=== PATIENT | female | born 1960 | race Caucasian/White ===

== ENCOUNTER → 2023-06-26 06:13 | Day surgery (SDC) | payer BC, SELFPAY ==
[2023-06-11 14:10] VITALS: BMI 21.8
[2023-06-26] VITALS (10 sets, daily range): BP systolic 95–115; BP diastolic 60–72; BMI 21.8; BMI 21.1
[2023-06-26] MEDS: VANCOCIN 200 IV (06:47)
[2023-06-26] MEDS: NORMOSOL-R 1000 IV (06:48)
[2023-06-26] MEDS: TYLENOL 1000 MG PO (06:50)
--- NOTE | 2023-06-26 06:57 | HP.FOC2 ---
Focused History & Physical
Chief Complaint
HPI:
Chief Complaint: right inguinal hernia
HPI / Indication for Planned Procedure: Patient is a 62-year-old female presenting for scheduled operative correction symptomatic right inguinal hernia. She was recently seen in outpatient surgical evaluation for history of discomfort and visible
swelling in the right inguinal region. CT abdomen/pelvis showing suspected right indirect hernia which was subsequently confirmed on examination with visible swelling and a reducible protrusion.
Relevant Past Medical History: Other (History of alcohol induced seizures, GERD, hypertension, depression, hyperlipidemia, panic attacks, osteoarthritis, urinary incontinence)
Relevant Social History: ETOH (h/o, quit 2021)
Relevant Family History: Negative
Relevant Past Surgical History: Positive for (Right rotator cuff, breast implants, cardiac catheterization)
Review of Systems
Review of Pertinent Systems: All Systems Negative
Medication
See Medication form for detailed medications: Yes
Medication List (including Herbals & OTC):
rosuvastatin 20 mg tablet 20 mg PO DAILY 07/15/18
hydrochlorothiazide 12.5 mg capsule 12.5 mg PO HS 08/26/21
hydrochlorothiazide 25 mg tablet 25 mg PO DAILY 08/26/21
ondansetron 4 mg disintegrating tablet 4 mg PO TIDPRN PRN nausea/vomiting #10 tabs 08/31/21
Linzess 145 mcg PO DAILY 06/23/23
Vitamin C 1 tab PO DAILY 06/23/23
calcium 1 gum PO DAILY 06/23/23
cholecalciferol (vitamin D3) 125 mcg (5,000 unit) tablet (Vitamin D3) 125 mcg PO DAILY 06/23/23
magnesium 1 tab PO DAILY 06/23/23
metoprolol succinate 25 mg tablet,extended release 24 hr 25 mg PO DAILY 06/23/23
multivitamin 1 tab PO DAILY 06/23/23
vitamin B complex 1 tab PO DAILY 06/23/23
Pepcid 1 tab PO DAILY PRN indegestion 06/26/23
trazodone 50 mg tablet 50 mg PO HS PRN sleep 06/26/23
Medications Reviewed: Yes
Allergies and Reactions
Patient has Allergies: Yes
Noted Allergies and Reactions:
Allergy/AdvReac Type Severity Reaction Status Date / Time
Penicillins Allergy Mild Rash Verified 06/26/23 06:20
amoxicillin Allergy Rash Verified 06/26/23 06:20
cephalexin Allergy Rash Verified 06/26/23 06:20
Sulfa (Sulfonamide Allergy Rash Verified 06/26/23 06:20
Antibiotics)
trimethoprim Allergy Rash Verified 06/26/23 06:20
steroids Allergy 'it makes Uncoded 06/26/23 06:20
me really
really
crazy'
Pertinent Physical Exam
All Other Systems: Negative
Head/Neck: Normal
Lungs: Normal
Heart: Normal
Abdomen: Other (Reducible right inguinal hernia)
Extremities: Normal
Neurological: Normal
Diagnosis / Assessment
62-year-old female presenting for scheduled operative correction symptomatic right inguinal hernia
Plan / Procedure
Laparoscopic TEP repair right inguinal hernia with mesh
Anesthesia/Sedation to be done by Anesthesia Provider: Yes
--- NOTE | 2023-06-26 07:00 | W.SUR.PREOP ---
Pre-Operative Surgical Note
-
I have examined this patient prior to the performance of the scheduled procedure.
The patient's condition is unchanged from the time of the current History and
Physical and the patient is able to undergo the scheduled procedure.
[2023-06-26] MEDS: TRANSDERM-SCOP 1 PATCH TRANSDERM (07:09)
--- NOTE | 2023-06-26 08:29 | W.IMMPOSTOP ---
Addendum entered and electronically signed by Romero Vera MD 06/26/23 08:37:
[id number]
Original Note:
Surgical Immed Post Op Note
-
Primary Surgeon: Jody
Assisting Surgeon: None
Pre-op Diagnosis: RIH
Post-op Diagnosis: RIH - direct
Procedure Performed: Lap TEP RIH repair with mesh; 3dmax large mid wt
Anesthesia Type: GETA + 0.25% Marcaine
Specimen / Cultures: none
Estimated Blood Loss: 4mL
Complications: none immediate
Operative Findings: right direct inguinal hernia. 3d max large mid wt repair, 2 tacks to coopers, no peritoneal entry
[2023-06-26] MEDS: DILAUDID 0.25 MG IV (09:19)
== END | disposition home or self-care (01) ==
LOC: SDS 06:13
PROVIDERS: ATTENDING PHYSICIAN Surgery; FAMILY PHYSICIAN Physician Assistant Medical
DX: K40.90 Unilateral inguinal hernia, without obstruction or gangrene, not specified as recurrent (principal)
CPT/HCPCS: 49505; 36415; 93005; C1781

== ENCOUNTER → 2023-11-16 10:00 | Outpatient (REF) | payer BC, SELFPAY | LOC: WDC 10:00 | PROVIDERS: ATTENDING PHYSICIAN Nurse Practitioner Adult Health; FAMILY PHYSICIAN Family Medicine | DX: N63.10 Unspecified lump in the right breast, unspecified quadrant (principal); N63.11 Unspecified lump in the right breast, upper outer quadrant | CPT/HCPCS: 76642; 77062; 77066 ==

== ENCOUNTER → 2024-05-04 12:45 | Outpatient (REF) | payer BC, SELFPAY | LOC: MRI 3T 12:45 | PROVIDERS: ATTENDING PHYSICIAN Nurse Practitioner Adult Health; FAMILY PHYSICIAN Family Medicine | DX: N63.0 Unspecified lump in unspecified breast (principal); Z80.3 Family history of malignant neoplasm of breast; Z98.82 Breast implant status | CPT/HCPCS: 77049; A9585 ==

== ENCOUNTER → 2024-09-21 09:43 | Outpatient (REF) | payer BC, SELFPAY ==
[2024-09-21 10:12] LABS: % Basophils 1.1 % (0-2); % Eosinophils 4.8 % (0-6); % Immature Granulocytes 0.2 % (0-0.5); % Lymphocytes 35.5 % (20.5-51.1); % Monocytes 9.8 % (1.7-9.3); % Neutrophils 48.6 % (42.2-75.2); Absolute Basophils 0.1 10^3/uL (0-0.2); Absolute Eosinophils 0.2 10^3/uL (0-0.7); Absolute Lymphocytes 1.6 10^3/uL (1.2-3.4); Absolute Monocytes 0.4 10^3/uL (0.1-0.6); Absolute Neutrophils 2.1 10^3/uL (1.4-6.5); Hematocrit 37.3 % (37.0-47.0); Hemoglobin 12.5 g/dL (12.0-16.0); Mean Corp Hgb Conc. 33.5 g/dL (33.0-37.0); Mean Corpuscular Hgb 30.7 pg (27.0-31.0); Mean Corpuscular Volume 91.6 fL (81.0-99.0); Mean Platelet Volume 10.4 fL (7.4-10.4); Nucleated Red Blood Cells % 0 %; Platelet Count 208 10^3/uL (130-400); Red Blood Cell Count 4.07 10^6/uL (4.20-5.40); Red Cell Dist. Width 12.1 % (11.5-14.5); White Blood Cell Count 4.4 10^3/uL (4.8-10.8)
[2024-09-21 10:50] LABS: ALT (SGPT) 22 U/L (0-35); AST (SGOT) 28 U/L (14-36); Albumin 4.6 g/dl (3.5-5.0); Alkaline Phosphatase 29 U/L (38-126); Blood Urea Nitrogen 18 mg/dl (7-17); Calcium 9.8 mg/dl (8.4-10.2); Carbon Dioxide 32 mmol/L (22-30); Chloride 100 mmol/L (98-107); Glucose 88 mg/dl (70-99); Sodium 138 mmol/L (135-145); Total Bilirubin 0.5 mg/dl (0.2-1.3); Total Protein 6.5 g/dl (6.3-8.2); eGFR > 60.00
== END ==
LOC: REG 09:43
PROVIDERS: ATTENDING PHYSICIAN Surgery Plastic and Reconstructive Surgery; FAMILY PHYSICIAN Family Medicine
DX: C50.412 Malignant neoplasm of upper-outer quadrant of left female breast (principal)
CPT/HCPCS: 36415; 80053; 85025; 93005

== ENCOUNTER → 2024-10-06 11:45 | Outpatient (REF) | payer BC, SELFPAY | LOC: CLAB 11:45 | PROVIDERS: ATTENDING PHYSICIAN Surgery Plastic and Reconstructive Surgery | DX: T85.43XA Leakage of breast prosthesis and implant, initial encounter (principal); M17.12 Unilateral primary osteoarthritis, left knee | CPT/HCPCS: 88304 ==

== ENCOUNTER → 2024-10-26 10:26 | Outpatient (REF) | payer SELFPAY | LOC: HWRAD 10:26 | PROVIDERS: ATTENDING PHYSICIAN Internal Medicine Cardiovascular Disease; FAMILY PHYSICIAN Family Medicine | DX: R06.02 Shortness of breath (principal) | CPT/HCPCS: 75571 ==

== ENCOUNTER → 2024-12-15 15:08 | Outpatient (REF) | payer BC, SELFPAY | LOC: MRI 15:08 | PROVIDERS: ATTENDING PHYSICIAN Specialist; FAMILY PHYSICIAN Family Medicine | DX: K76.0 Fatty (change of) liver, not elsewhere classified (principal) | CPT/HCPCS: 74181; 76391 ==

== ENCOUNTER → 2025-01-11 09:56 | Outpatient (REF) | payer BC, SELFPAY | LOC: RAD 09:56 | PROVIDERS: ATTENDING PHYSICIAN Internal Medicine Rheumatology; FAMILY PHYSICIAN Family Medicine | DX: M18.0 Bilateral primary osteoarthritis of first carpometacarpal joints (principal); M79.641 Pain in right hand; M79.642 Pain in left hand | CPT/HCPCS: 73130 ==

== ENCOUNTER → 2025-01-19 13:45 | Outpatient (REF) | payer BC, SELFPAY | LOC: HWRAD 13:45 | PROVIDERS: ATTENDING PHYSICIAN Family Medicine; REFERRING PHYSICIAN Internal Medicine Rheumatology | DX: M85.80 Other specified disorders of bone density and structure, unspecified site (principal) | CPT/HCPCS: 77080 ==